=== PATIENT | female | born 1950 | race Caucasian/White ===

== ENCOUNTER 2017-01-10 08:55 | Day surgery (SDC) | payer OTHER ==
[~2017-01-10] VITALS: Ht 154.9 cm; Wt 95.2 kg
--- NOTE | 2017-01-10 07:45 | PCM.HPANE ---
Patient Data Surgeon Admitting Provider: Attending Provider:Scottie Burciaga MD Primary Care Physician:Davie Christian DO Other Provider:NickoocShiraBurkett Anesthesia Reason for Visit Atypical Chest Pain Ht/WT & BMI Body Mass Index Allergies Coded Allergies: aspirin (Verified Allergy, Mild, NAUSEA, 12/16/13) Past Anesthesia History Anesthesia History: Denies:: Abnormal Airway, Anesthesia Reactions, Difficult Intubation, Fam Anesthesia Reaction, Fam Malignant Hypertherm, Malignant Hyperthermia Diabetes History Hx Diabetes?: No MRSA MRSA: No Medications Reported Medications Cholecalciferol (Vitamin D3) (Vitamin D3)400 Unit Tab.qknn401 Unit PO 01/08/17 Verapamil ER 180 Mg Cap24h.eig911 Mg PO DAILY Ref 0 01/08/17 Ranitidine 150 Mg Oqwrhtr316 Mg PO BID Ref 0 01/08/17 Nitroglycerin SL 0.4 Mg Tab.subl0.4 Mg SL 01/08/17 Metoprolol Tartrate 100 Mg Gqsnve919 Mg PO BID 30 Days Ref 0 01/08/17 Calcium Carbonate (Calcium)600 Mg Pnbhhi433 Mg PO DAILY 01/08/17 Discontinued Reported Medications Naproxen Sodium (Aleve)220 Mg Zrfliyd831 Mg PO 12/17/13 Hydrochlorothiazide 25 Mg Wvgchx40 Mg PO DAILY 30 Days Ref 0 12/17/13 Meloxicam (Mobic)7.5 Mg/5 Ml Oral.susp15 Mg PO DAILY Ref 0 12/17/13 Discontinued Scripts Ondansetron ODT (Zofran ODT)4 Mg Tablet4 Mg PO Q4H PRN For Nausea #10 TABLET Prov:Ashish Olivares MD 07/21/15 History History of ENT Problems?: No HEENT History: Denies:: Abnormal Airway Difficult Intubation Dysphagia Hearing Problem Denture Type: None Teeth Condition: Within Normal Limits Hx of Heart Problems?: Yes Cardiovascular History: Positive for:: Hypertension Denies:: AICD Atrial Fibrillation Chest Pain Pacemaker Valvular Heart Disease Hx of Respiratory Problem?: No Respiratory History: Denies:: Asthma COPD Cough Hemoptysis Pneumonia Tuberculosis Hx Neurologic Problems?: No Neurological History: Denies:: Alzheimer's Disease CVA Dementia Dizziness Headaches Multiple Sclerosis Parkinson's Disease Peripheral Neuropathy Seizures TIA Hx of GI Problems?: Yes Gastrointestinal History: Positive for:: Gastroesphageal Reflux Denies:: Cirrhosis Diverticulitis Gall Bladder Disease Gastrointestinal Bleeding Heartburn Hepatitis Hiatal Hernia Liver Disease Rectal Bleeding Hx of Problems?: No Female Hx: Denies:: Currently Hx Musculoskeletal Problems?: No Musculoskeletal History: Denies:: Joint Replacement Hx of Psycho/Social Problems?: No Psycho Social History: Denies:: Anxiety Hx Depression Hx Surgeries?: Yes Hx Any Other Health Problems?: Yes Hx Diabetes: No Hx Alcohol Use: Yes (SELDOM) Smoking Status: Never Smoker Stop/Bang Risk Assessment Category Category 1A: Patient has history of documented sleep apnea, and HAS NOT received any narcotic, sedative or anesthesia administration during this stay. Category 1B: Patient has history of documented sleep apnea, and HAS received any narcotic , sedative or anesthesia administration during this stay Category 2: Patient has SUSPECTED Obstructive Sleep Apnea, and HAS received any narcotic , sedative or anesthesia administration during this stay. Category 3: Patient has SUSPECTED Obstructive Sleep Apnea and HAS NOT received narcotic, sedative or anesthesia administration during this stay. Category 4: Outpatient in Procedural Areas with known sleep apnea or who screen positive for High Risk via the STOP/BANG questionnaire. Exam Exam General Appearance: Alert, Oriented X3, Cooperative HEENT/AIRWAY: MP 1, Neck Movement (from), Mouth Opening (wnl) Lungs: Clear to Auscultation Heart: Exam Unremarkable Plan Impression Patient chart reviewed, patient interviewed and anesthestic plan with risks, benefits, and alternatives discussed, and informed consent obtained. ASA Physical Status: ASA2 Mod Systemic Disease Anesthetic Plan: MAC Bene/Risks/Altern/Consents: Yes HP Complete Prior to Induction: Yes Dimitris Ruiz MD Jan 10, 2017 07:45
[~2017-01-10 08:55] MED LIST: CALC600T12 PO; CHOL400T3 PO; Lactated Ringer's 1,000 ML IV ONE; METO100T3 PO; NITR0.4T6 SL; RANI150C4 PO; VERA180C2 PO
[2017-01-10] MEDS ORDERED: Propofol 10,000 mCg/mL 20 mL Inj ONE (08:56)
[2017-01-10] MEDS ORDERED: fentaNYL-PF 50 mCg/mL 2 mL Inj ONE (08:56)
[2017-01-10 09:32] VITALS: BP 145/75; PULSE 60; RESP 16; O2SAT 96
[2017-01-10 10:13] VITALS: BP 122/70; PULSE 67; RESP 15; O2SAT 93
--- NOTE | 2017-01-10 10:13 | PCM.ENDEGD ---
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 Scope introduced esophagus. Esophagus showed normal shiny whitish mucosa consistent with squamous cell component. Z line was at 40 cm from the incisors. There was 2 cm area of salmon colored mucosa consistent with Gardiner's esophagus. Narrow banding used. No ulcer mass erosion atypical mucosa noted. 4 quadrant biopsy obtained every 2 cm. Scope further advanced to the stomach. Stomach showed normal shiny mucosa with normal appearing rugae folds without any ulcer mass erosion. However there were isolated spot where some redness was noted. Biopsies obtained at the spots. Cardia fundus body antrum pylorus were all visualized. Retroflexion was done. Stomach was easily inflated and deflatable using air. Scope further advanced to the distal duodenum. Duodenum revealed normal villous structures with normal appearing folds without any mass ulcer erosion. 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 Patient monitoring Continuous pulse oximetry, cardiac monitoring, blood pressure monitoring, IV access, and oxygen at 2L per nasal cannula. Complications There were no periprocedural complications identified. Post Procedure Plan Post Procedure Recommendations 1. Restrict activities today. 2. Resume normal activities in the morning. 3. Resume medications. 4. GERD behavioral modification: - Avoid fatty, acidic, spicy, large meals - Do not lie down after meals - Do not eat or drink anything for at least 2 1/2 hours before going to bed at night - Discontinue tobacco and alcohol - Decrease or avoid caffeine - Avoid chocolate and mints - Decrease weight - Avoid aspirin and non steroidal anti-inflammatory agents (NSAID) such as Aleve, Advil, Mobic, Naproxen, Ibuprofen, etc 5. Add proton pump inhibitor. Take 30 minutes before 1st meal of the day. 6. Patient informed of normal post procedure side effects as bloating, drowsiness, blood streaking in the stool 7. If gastric biopsy reveal H.pylori, continue with appropriate treatment 8. If small bowel biopsy reveals celiac, continue with appropriate treatment 9. Please don't hesitate to call me with any questions Scottie Burciaga MD Jan 10, 2017 10:13
--- NOTE | 2017-01-10 10:17 | PCM.ANEP1 ---
Post Anesthesia PACU Phase 1 Assessment Vital Signs Vital Signs Date Time Temp Pulse Resp B/P Pulse Ox O2 Delivery O2 Flow Rate FiO2 01/10/17 10:13 67 15 122/70 93 Room Air 01/10/17 09:32 36.6 60 16 145/75 96 Room Air Anesthetic Administered: GA Level of Alertness: Awake, talking REID's with Equal Strength: Yes Pain: No Nausea or Vomiting: No CV Function & Hydration Stable: Yes Airway Device: Oxygen Delivery: Room Air Lungs: Normal Air Movement PACU Phase 2 Assessment Complications: No Follow up Care: No Patient Instructions Provided: N/A Dimitris Ruiz MD Jan 10, 2017 10:17
[2017-01-10 10:21] VITALS: BP 123/70; PULSE 64; RESP 15; O2SAT 94
[2017-01-10 10:31] VITALS: BP 150/76; PULSE 68; RESP 15; O2SAT 94
[2017-01-10 10:41] VITALS: BP 140/81; PULSE 61; RESP 15; O2SAT 94
--- NOTE | 2017-01-14 16:29 | PATH ---
SURGICAL PATHOLOGY Attending Physician:Scottie Burciaga M.D. CASE STATUS: Signed Out PATIENT NAME: VJ CASANOVA PID: [id number] : 1950 DATE COLLECTED:01/10/2017 15:04 SPECIMEN: 1: Gastric, Biopsy 2: Esophagus, Biopsy CLINICAL HISTORY: ATYPICAL CHEST PAIN 1). GASTRIC BIOPSY 2). DISTAL ESOPHAGUS BIOPSY FINAL DIAGNOSIS: 1. Stomach, Biopsy: Gastric antral mucosa with intestinal metaplasia. Negative for Helicobacter organism by immunohistochemistry. Negative for dysplasia or malignancy. 2. Distal Esophagus, Biopsy: Squamocolumnar junctional mucosa with no diagnostic abnormality. Negative for intestinal metaplasia, dysplasia or malignancy. ICD10: R07.89 GROSS DESCRIPTION: Received two formalin-filled containers, each labeled with the patient' s name. 1. Received in formalin, labeled with the patient' s name and "gastric biopsy", are three fragments of marshall, soft tissue ranging from 0.1 x 0.1 x 0.1 cm to 0.2 x 0.2 x 0.1 cm. The fragments are totally submitted in cassette 1A. 2. Received in formalin, labeled with the patient' s name and "distal esophagus biopsy", are four fragments of marshall, soft tissue ranging from 0.1 x 0.1 x 0.1 cm to 0.3 x 0.2 x 0.1 cm. The fragments are totally submitted in cassette 2A. ([id number]) MICRO DESCRIPTION: A) An immunohistochemical stain was performed to evaluate for Helicobacter organisms and is negative. A control stain showed appropriate reactivity. * This test was developed and its performance characteristics determined by [facility]. It has not been cleared or approved by the U.S. Food and Drug Administration. The FDA has determined that such clearance or approval is not necessary. This test is used for clinical purposes. It should not be regarded as investigational or for research. ICD-9 CODES: CPT CODES: 1: 61266, 35309 2: 37249 Electronically Signed Out Jani Macias MD, Ph.D. [facility], [place] [address] Technical component performed at [facility], [address], [place], [address]
== END 2017-01-10 23:59 | disposition home or self-care (01) ==
LOC: END 08:55
PROVIDERS: ATTEND Internal Medicine
DX: K29.50 Unspecified chronic gastritis without bleeding (principal); R07.89 Other chest pain; Z79.899 Other long term (current) drug therapy; Z87.891 Personal history of nicotine dependence
CPT/HCPCS: 43239; J2250; J2704; J3010; J7120

== ENCOUNTER 2017-02-08 09:55 | Observation (INO) | payer OTHER ==
[~2017-02-08] VITALS: Ht 154.9 cm; Wt 94.5 kg
[2017-02-08] VITALS (7 sets, daily range): BP systolic 116–166; BP diastolic 67–102; PULSE 54–75; RESP 14–20; O2SAT 96–99
[~2017-02-08 09:55] MED LIST changes: -Lactated Ringer's 1,000 ML IV ONE; +NITR0.4T38 SL; -NITR0.4T6 SL
--- NOTE | 2017-02-08 10:16 | ED.REPORT ---
HPI-Dyspnea / Wheezing Date of Service Feb 08, 2017 ED Provider: Armond De Jesus DO Pt is a 66 y/o female w/ a hx of HTN, angina, presenting to the ED c/o vague numbness onset 1 hour ago. She has been experiencing shortness of breath which is worse with exertion for a few days and 1 hour ago she began experiencing left face numbness followed by left arm numbness, and then finally right arm numbness. She c/o associated orthopnea. Her numbness has decreased since onset. Pt denies headache, problem walking, focal weakness, speech change, vision change, dizziness. Her last stress test was in April 2016. She states she has an allergy to aspirin which makes her nauseous. The patient is taking metoprolol and verapamil. She also states she has been experiencing near- syncope intermittently for the past 4 years and is wanting to have that checked up. 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 Stated Complaint: NUMBNESS IN ARMS, DIZZINESS, NUMBNESS IN FACE Chief Complaint: Neuro Symptoms/ Deficits Nursing Notes Reviewed: Yes Allergies: Coded Allergies: aspirin (Verified Allergy, Mild, NAUSEA, 12/16/13) Scheduled Metoprolol Tartrate (Metoprolol Tartrate) 100 Mg Tablet 100 MG PO BID Ranitidine (Ranitidine) 150 Mg Capsule 150 MG PO BID Verapamil ER (Verapamil ER) 180 Mg Cap24h.pel 180 MG PO DAILY diphenhydrAMINE HCl (Benadryl) 25 Mg Capsule 25 MG PO DAILY Miscellaneous Medications Nitroglycerin SL (Nitroglycerin SL) 0.4 Mg Tab.subl 0.4 MG SL General Time Seen by MD: 10:15 Chief Complaint Shortness of breath Hx Obtained From: Patient Arrived By: Walk-in Sudden in Onset?: No Onset Occurred: 5 - 8 hours ago Symptom Duration: Since onset Past Medical History Past Medical History Notes: PCP: Dr. Perez Past Medical History Angina - takes Nitro Hypertension Constipation GERD Arthritis in back Past Surgical History Hysterectomy Cholecystectomy Cataracts Breast Wrist Right leg tendons Smoking History Never Smoker Social History Alcohol Use: "Social" Drug Use: Denies drug use Other Social History: Good social support Ambulatory Status Independent Review of Systems Respiratory: Reports: Shortness of breath Cardiovascular: Denies: Chest pain Complete sys rev & neg: except as marked. Neurologic: Reports: Numbness, Denies: Focal weakness, Headache, Problem walking, Seizure, Shaking, Slurred speech, Unable to speak, Vision change Physical Exam Initial Vital Signs Vital Signs (First) Date Time Temp Pulse Resp B/P Pulse Ox O2 Delivery O2 Flow Rate FiO2 02/08/17 10:00 37.0 54 16 116/77 98 Room Air 02/08/17 12:26 2 Initial VS: Reviewed, Vital signs normal Head / Eyes: Atraumatic, Normocephalic, PERRL ENT: Mucous membranes moist, Conjunctiva normal, No scleral icterus Abdomen / GI: Soft, Non-tender, No guarding, No rebound, No distention Extremities: Vascular intact, Neuro intact, No swelling Skin: Warm, Dry, No cyanosis Psychiatric: Mood/affect normal, Behavior normal, Normal thought content General/Constitutional: Awake, Alert, No acute distress, Cooperative, Not toxic appearing Neck: Supple, Full range of motion Respiratory / Chest: Breath sounds NL, Breath sounds = bilat, No respiratory distress, No rales, No rhonchi, No wheezing, No stridor Cardiovascular: Heart sounds NL, No gallop, No murmurs, No rubs, Cap refill not delayed, Peripheral circulation NL, Pulses = bilaterally Heart Rate / Rhythm: Positive: Bradycardia, Irregular rhythm Neurologic: Oriented X3, Speech NL, No motor deficits, No sensory deficits, CN II - XII intact, Cerebellar NL, Memory NL, Gait NL Interpretation & Diagnostics Lab Results Interpretation Result Diagram: 02/08/17 1050 02/08/17 1050 Test 02/08/17 10:15 02/08/17 10:47 02/08/17 10:50 Hold Urine Received (Received) Hold Pryor Top Tube Received (Received) White Blood Count 6.0th/mm3 (3.8-10.1) Red Blood Count 4.50mil/mm3 (3.90-5.20) Hemoglobin 13.9g/dL (12.0-15.6) Hematocrit 40.4% (35.0-46.0) Mean Corpuscular Volume 89.8fL (81-100) Mean Corpuscular Hemoglobin 30.9pg (27.0-35.0) Mean Corpuscular Hemoglobin Concent 34.4% (32.0-37.0) Red Cell Distribution Width 13.9% (12.3-15.4) Platelet Count 250bil/L (150-400) Neutrophils (%) (Auto) 68.4% (40-74) Lymphocytes (%) (Auto) 18.9% (14-46) Monocytes (%) (Auto) 8.5% (4-12) Eosinophils (%) (Auto) 3.7% (0-5) Basophils (%) (Auto) 0.3% (0-3) D-Dimer 0.63mg/L FEU (<0.50) Sodium Level 139mEq/L (134-144) Potassium Level 4.5mEq/L (3.5-5.2) Chloride Level 103mEq/L (97-108) Carbon Dioxide Level 21mmol/L (18-29) Blood Urea Nitrogen 20mg/dL (8-27) Creatinine 0.64mg/dL (0.57-1.00) Estimat Glomerular Filtration Rate 134mL/min (>59) Glucose Level 133mg/dL (60-99) Calcium Level 8.8mg/dL (8.5-10.1) Magnesium Level 2.1mg/dL (1.6-2.6) Total Bilirubin 0.4mg/dL (0.0-1.2) Aspartate Amino Transf (AST/SGOT) 44U/L (0-50) Alanine Aminotransferase (ALT/SGPT) 36U/L (0-32) Alkaline Phosphatase 121U/L (25-165) Total Creatine Kinase 55U/L (21-215) Creatine Kinase MB 1.2ng/mL (0.0-5.3) Creatine Kinase MB % % (0.0-5.0) Troponin T < 0.010ug/L (0.0-0.011) Pro-B-Type Natriuretic Peptide 571.1pg/mL (0-287) Total Protein 7.1g/dL (6.4-8.4) Albumin 3.8g/dL (3.4-5.0) Thyroid Stimulating Hormone (TSH) 3.590uIU/mL (0.450-4.500) Free Thyroxine 0.99ng/dL (0.82-1.77) ECG Interpretation ECG Interpretation: Sinus bradycardia rate in 40s Ventricular bigeminy Time: 10:41 Interpreted by: ED physician Normal ECG Interpretation: No acute ischemic changes ECG Interpretation: Sinus rhythm rate 63 LVH Time: 12:40 Interpreted by: ED physician X-Ray Chest Interpretation Chest Xray Interpretation: IMPRESSION: Mild cardiomegaly with mild vascular congestion. Dictated by: Maikol Rodriguez M.D. on 02/08/2017 at 9:44 Approved by: Maikol Rodriguez M.D. on 02/08/2017 at 9:46 View: Portable, 1 view Interpretation / Wet Read by: Interpret - Radiologist Re-Eval/Medical Decision Med Decision/Clinical Course Clinically patient became somnolent and less responsive when her heart rate dropped representing severe symptomatic bradycardia minimally responsive to low doses of atropine, totaling 3 mg. Her medical history is reviewed and she is on both metoprolol and verapamil concern for both beta dawna and calcium channel dawna toxicity, 5 mg of IV glucagon are given as well as 3 g of IV calcium gluconate which normalized her heart rate in resolve her symptoms. She will be admitted to [facility] for ongoing monitoring. Re-Evaluation/Progress #1: Time of Eval: 11:15 Re-Evaluation/Progress Note: Pt rechecked. HR is now in 40s and she feels short of breath at rest. Re-Evaluation/Progress #2: Time of Eval: 11:23 Re-Evaluation/Progress Note: Pt rechecked. HR now 48. She is somnolent. Discussed with patient that this is likely a Beta dawna overdose and she may need a pacemaker. She agrees with plan for pacemaker if indicated. She would like to be FULL CODE. Re-Evaluation/Progress #3: Time of Eval: 11:31 Re-Evaluation/Progress Note: Pt rechecked. HR dropping into 30s and she is somnolent. She has no clue what medicine she takes other than what Dr. Porter prescribes. Re-Evaluation/Progress #4: Time of Eval: 11:35 Re-Evaluation/Progress Note: Pt rechecked. Informed pt of need for admission. Pt understands and agrees with plan for admission. All questions addressed. Now requiring 3 pushes of atropine total of 2 mg. Re-Evaluation/Progress #5: Time of Eval: 11:49 Re-Evaluation/Progress Note: Pt rechecked. She is feeling better after medications now that her HR is in the 50s. Re-Evaluation/Progress #6: Time of Eval: 12:05 Re-Evaluation/Progress Note: Pt rechecked. HR in 50s, now receiving 3rd mg of Atropine, glucagon, and calcium. Feeling better. Re-Evaluation/Progress #7: Time of Eval: 12:15 Re-Evaluation/Progress Note: Pt rechecked. Much improved. HR of 73. Now vomiting from glucagon. Consultation : Referral / Consult Name: Sofiya Mon DO Consulted With: Hospitalist Call Returned at: 11:40 Scene Painter: Will see patient, Agrees with eval, Agrees with plan, Accepts admit Counseled Regarding: Diagnosis, Lab results, Need for admission Discharge & Departure Impression: Primary Impression: Beta dawna toxicity Additional Impression: Symptomatic bradycardia Disposition: ADMITTED TO HOSPITAL Discharge Condition All VS Reviewed: Yes Condition: Stable Referrals: OTHER,PHYSICIAN (PCP) Antonio Porter MD Crit Care Except Billable Proc Time Spent: 75-104 minutes Services Performed: Patient management by me, Time spent at bedside, Reviewing test results, Reviewing imaging, Discussing patient care, Documentation in record, Time with fam/surrogate Critical Care Notes: 80 minutes Scribe Attestation Portions of this note were transcribed by Alec Bravo. I, Dr. De Jesus personally performed the history, physical exam and medical decision-making; I reviewed and confirmed the accuracy of the information in the transcribed note. copies to: Antonio Porter MD, Timothy S DO Feb 08, 2017 10:16 ALEC BRAVO Feb 08, 2017 10:23
--- NOTE | 2017-02-08 10:47 | DRSVH ---
PROCEDURE: X-RAY CHEST ONE VIEW, PORTABLE ([id number]) INDICATIONS: dyspnea TECHNIQUE: One view of the chest was acquired. COMPARISON: [facility], CR, CHEST 2VW, 02/02/2011, 9:46. FINDINGS: Surgical changes and devices: None. Lungs and pleura: The pulmonary vasculature may be slightly prominent. Mediastinum: Mediastinal contours appear normal. The heart appears to be slightly enlarged. Bones and chest wall: No suspicious bony lesions. Overlying soft tissues appear unremarkable. IMPRESSION: Mild cardiomegaly with mild vascular congestion. Dictated by: Maikol Rodriguez M.D. on 02/08/2017 at 9:44 Approved by: Maikol Rodriguez M.D. on 02/08/2017 at 9:46
[2017-02-08 10:56] LABS: BASOPHILS % (AUTO) 0.3 % (0-3); EOSINOPHILS % (AUTO) 3.7 % (0-5); MONOCYTES % (AUTO) 8.5 % (4-12); Mean Corpuscular Hemoglobin 30.9 pg (27.0-35.0); Mean Corpuscular Volume 89.8 fL (81-100); NEUTROPHILS % (AUTO) 68.4 % (40-74); Platelet Count 250 bil/L (150-400)
[2017-02-08] MEDS: Ondansetron 2 mg/mL 2 mL Inj IVPUSH ONE ×2 (11:19→12:14)
[2017-02-08] MEDS ORDERED: Glucagon 1 mg/mL Inj IV ONE (11:30)
[2017-02-08 11:32] LABS: TROPONIN T < 0.010 ug/L (0.0-0.011)
[2017-02-08] MEDS: Atropine 1 mg/10 mL (Code) Syringe IVPUSH PRN ×3 (11:32→12:00)
[2017-02-08] MEDS ORDERED: Calcium GLUCOnate 10% (Gm) 1 Gm/10 mL Inj ONE (11:35)
[2017-02-08 11:38] LABS: Creatine Kinase 55 U/L (21-215); Magnesium 2.1 mg/dL (1.6-2.6)
[2017-02-08] MEDS ORDERED: Calcium GLUCOnate 10% (Gm) 1 Gm/10 mL Inj IVPUSH ONE (11:45)
[2017-02-08] MEDS ORDERED: Ondansetron 2 mg/mL 2 mL Inj IVPUSH PRN (11:45)
[2017-02-08] MEDS ORDERED: Polyethylene Glycol (PEG) 17 Gm Powder PO PRN (11:45)
[2017-02-08] MEDS ORDERED: Alum-Mag Hydrox-Simeth 30 mL Suspension PO PRN (11:45)
[2017-02-08] MEDS ORDERED: 0.9% Sodium Chloride 1,000 ML IV SCH (11:50)
[2017-02-08] MEDS ORDERED: Atropine 1 mg/10 mL (Code) Syringe ONE (12:47)
[2017-02-08] MEDS ORDERED: DIPH25CA6 PO (12:49)
--- NOTE | 2017-02-08 13:40 | NUR ---
Admit note Report received from ED rn. Patient arrived to room 2010 from ED. Patient oriented to room and use of call light. Policies and pdrocedures explained. Patient verbalized understanding. Patient alert and oriented x3. Vital signs charted on admission. Tele Showing pt SR in the 60s. stating feeling faint, reminded pt to use call light for needs. Pt verbalized understanding. Ongoing care.
--- NOTE | 2017-02-08 14:34 | PCM.HPMED ---
Subjective Date of Service Feb 08, 2017 Primary Provider: Admitting Physician: Sofiya Mon DO Primary Care Physician: Lara Sneed MD Attending Physician: Sofiya Mon DO Chief Complaint: Pre-syncope History of Present Illness: Patient is 66 year old, female with a past medical history significant for hypertension, angina, and hypertrophic obstructive cardiomyopathy who presents to the ED complaining of feeling like she was going to "pas out" with symptoms of shortness of breath that was accompanied by numbness of the left side of her face and left arm while sitting on her couch. She states that her symptoms began at 8:30 AM with the progression of fatigue, dizziness, cold sensation and tingling/ numbness in her left arm, pain in left eye. She admits to similar episodes of presyncope accompanied by chest pain occurring throughout the last few months, for which she has not visited the ED. The most recent of which occurred 01/27 and 01/29, and were accompanied by chest pain. Patient states that today's episode is unlike her prior episodes of angina due to the absence of pain. Patient is being followed by college physics instructor, Dr. Porter. She takes metoprolol tartrate 100 mg bid and verapamil 180 mg. Patient admits to not being compliant with her medications. She states that she frequently forgets to take her heart medication at the prescribed time and takes it as soon as she remembers, sometimes overlapping with her next dose. She had a recent ECHO done on 09/18/16 which showed severe asymmetric left ventricular hypertrophy and increased LVOT velocity suggestive of obstruction. Patient denies any episode of syncope and there is no family history of sudden cardiac . Vitals signs in the ED were Temperature 37, RR 16, BP 116/78, 98% O2 on RA. Upon initial arrival to the ED, EKG revealed bradycardia with a heart rate of 30. She was given atropine x3, for a total of 2mg, calcium gluconate to reverse verapamil and glucagon to reverse metoprolol. This resulted in an increase of her heart rate to 70 within minutes. When transferred to the floor, patient's heart rate was in the 60s and blood pressure was 162/70. Review of Systems: She admits to three weeks of new onset vision changes, and constipation. Denies pain, headache, recent illness, diarrhea, changes to hearing, nausea, vomiting, abdominal pain and diarrhea. The comprehensive review of systems was conducted with the patient and found to be negative except as above in the history of present illness. Allergies Coded Allergies: aspirin (Verified Allergy, Mild, NAUSEA, 12/16/13) Home Medications Calcium Carbonate 600mg Cholecalciferol 400 units Metoprolol Tartrate 100mg BID Nitroglycerin 0.4mg capsule Ranitidine 150mg BID Verapamil 180mg Prilosec 20 mg PMH Hypertrophic obstructive cardiomyopathy Angina Hypertension GERD Constipation Arthritis of arms and hands Surgical History Hysterectomy Cholecystectomy Left Wrist surgery Cataract surgery Right leg tendon Breast surgery (around 1986 breast was leaking a brown fluid so excised lesion of concern) Family History Father- Stroke, Diabetes, MD (roughly 40 years old), Cancer (cause of ) Mother-Stroke, Diabetes, Pneumonia (cause of aged 71) Siblings- Total 16. 3 oldest brothers passed due to cancer, sister MD and cancer (). All other siblings have unknown heart conditions. Social History Hx Alcohol Use: Yes (very seldom) Hx Substance Use: Yes (marijuana last used over 7 years ago) Smoking Status: Former Smoker (20 pack year history quit 9 years ago) Years of Smokin Living Arrangement: with Family Additional Information Caffeine-averages 2 servings per day Exam Vital Signs Vital Sign - Last Date Time Temp Pulse Resp B/P Pulse Ox O2 Delivery O2 Flow Rate FiO2 02/08/17 13:36 62 02/08/17 13:30 36.6 17 166/81 97 Room Air 02/08/17 12:26 2 Exam General: Patient is lying comfortably on bed, AAOX3, not in acute distress, cooperative and pleasant. HEENT: head normocephalic and atraumatic, PERRLA, EOMI, no scleral icterus, noninjected conjunctiva Neck: neck supple, non-tender, no lymphadenopathy, trachea midline, no JVD CV: regular rate and rhythm, s1 and s2 heard, grade 2/6 systolic murmur heard best on the right sternal border, radial pulses 2+ and equal bilaterally, no rubs or gallops, no edema Lungs: Clear to auscultation bilaterally, no wheezes, rales or rhonchi, no increased work of breathing Abdomen: normoactive bowel sounds on 4Q, soft, non-distended, non-tender to palpation, no organomegally, Skin: warm and dry Musculoskeletal: 5/5 UE and LE strength bilaterally, full ROM bilaterally Neuro: Grossly neurologically intact, cranial nerves II through XII intact, no dyskinesia, dysmetria, sensation intact in extremities Psych: Normal mood and affect Lab and Diagnostics Labs Laboratory Tests Test 02/08/17 10:15 02/08/17 10:47 02/08/17 10:50 Hold Urine Received (Received) Hold Pryor Top Tube Received (Received) White Blood Count 6.0th/mm3 (3.8-10.1) Red Blood Count 4.50mil/mm3 (3.90-5.20) Hemoglobin 13.9g/dL (12.0-15.6) Hematocrit 40.4% (35.0-46.0) Mean Corpuscular Volume 89.8fL (81-100) Mean Corpuscular Hemoglobin 30.9pg (27.0-35.0) Mean Corpuscular Hemoglobin Concent 34.4% (32.0-37.0) Red Cell Distribution Width 13.9% (12.3-15.4) Platelet Count 250bil/L (150-400) Neutrophils (%) (Auto) 68.4% (40-74) Lymphocytes (%) (Auto) 18.9% (14-46) Monocytes (%) (Auto) 8.5% (4-12) Eosinophils (%) (Auto) 3.7% (0-5) Basophils (%) (Auto) 0.3% (0-3) D-Dimer 0.63mg/L FEU (<0.50) Sodium Level 139mEq/L (134-144) Potassium Level 4.5mEq/L (3.5-5.2) Chloride Level 103mEq/L (97-108) Carbon Dioxide Level 21mmol/L (18-29) Blood Urea Nitrogen 20mg/dL (8-27) Creatinine 0.64mg/dL (0.57-1.00) Estimat Glomerular Filtration Rate 134mL/min (>59) Glucose Level 133mg/dL (60-99) Calcium Level 8.8mg/dL (8.5-10.1) Magnesium Level 2.1mg/dL (1.6-2.6) Total Bilirubin 0.4mg/dL (0.0-1.2) Aspartate Amino Transf (AST/SGOT) 44U/L (0-50) Alanine Aminotransferase (ALT/SGPT) 36U/L (0-32) Alkaline Phosphatase 121U/L (25-165) Total Creatine Kinase 55U/L (21-215) Creatine Kinase MB 1.2ng/mL (0.0-5.3) Creatine Kinase MB % % (0.0-5.0) Troponin T < 0.010ug/L (0.0-0.011) Pro-B-Type Natriuretic Peptide 571.1pg/mL (0-287) Total Protein 7.1g/dL (6.4-8.4) Albumin 3.8g/dL (3.4-5.0) Thyroid Stimulating Hormone (TSH) 3.590uIU/mL (0.450-4.500) Free Thyroxine 0.99ng/dL (0.82-1.77) Result Diagram: 02/08/17 1050 02/08/17 1050 X-Rays, CTs and MRIs PROCEDURE: X-RAY CHEST ONE VIEW, PORTABLE ([id number]) INDICATIONS: dyspnea TECHNIQUE: One view of the chest was acquired. COMPARISON: [facility] [place], [place], CHEST 2VW, 02/02/2011, 9:46. FINDINGS: Surgical changes and devices: None. Lungs and pleura: The pulmonary vasculature may be slightly prominent. Mediastinum: Mediastinal contours appear normal. The heart appears to be slightly enlarged. Bones and chest wall: No suspicious bony lesions. Overlying soft tissues appear unremarkable. IMPRESSION: Mild cardiomegaly with mild vascular congestion. Dictated by: Maikol Rodriguez M.D. on 02/08/2017 at 9:44 Approved by: Maikol Rodriguez M.D. on 02/08/2017 at 9:46 12-lead ECG 02/08/17 ECG Interpretation: Sinus bradycardia rate in 40s Ventricular bigeminy Time: 10:41 Interpreted by: ED physician Normal ECG Interpretation: No acute ischemic changes ECG Interpretation: Sinus rhythm rate 63 LVH Time: 12:40 Interpreted by: ED physician Cardiac Echo Impressions Most recent echocardiogram on 09/18/2016 Interpretation Summary Proximal septal thickening is noted. There is severe asymmetric left ventricular hypertrophy. The LVOT velocity is 2.8 m/s. The left ventricular outflow velocity with valsalva is 6.4 m/s. There is mild mitral regurgitation. There is systolic anterior motion of the chordal apparatus. There is trace tricuspid regurgitation. The right ventricular systolic pressure is estimated at least 33 mmHg assuming a right atrial pressure of 3 mm Hg. EF 70-75% Assessment & Plan Patient is 66 year old, female with a past medical history significant for hypertension, angina, and hypertrophic obstructive cardiomyopathy who presents to the ED complaining of feeling like she was going to "pass out" with symptoms of shortness of breath that was accompanied by numbness of the left side of her face and left arm while sitting on her couch. Upon initial arrival to the ED, EKG revealed bradycardia with a heart rate of 30. She was given atropine x3, for a total of 2mg, calcium gluconate to reverse verapamil and glucagon to reverse metoprolol. She is being admitted to observation for symptomatic bradycardia. Acute Symptomatic Bradycardia, present on admission, resolved -presented with symptoms of pre-syncope -likely secondary to polypharmacy and non-compliant to medication instructions. Patient states that she takes her meds whenever she remembers -Patient is on metoprolol tartrate 100 mg bid and Verapamil 180 mg -with a heart rate of 30. She was given atropine x3, for a total of 2mg, calcium gluconate to reverse verapamil and glucagon to reverse metoprolol. -HR increased to 70s with the atropine -We will hold home medications of metoprolol and verapamil -Monitor patient on telemetry - Cardiology consulted and case discussed with Dr. Blackman Hypertension, chronic, ongoing -Hold home medications -Start hydralazine 25 mg q8 hrs -Monitor blood pressure Hypertrophic obstructive cardiomyopathy, present on admission, ongoing -Patient's most recent ECHO on 09/18/16 which showed severe asymmetric left ventricular hypertrophy and increased LVOT velocity suggestive of obstruction -Patient is being followed by Patient Resource Coordinator Dr. Porter as an outpatient -Will hold metoprolol and verapamil for now GERD -Continue home dose of ranitidine CODE status: Full code Patient is admitted under Inpatient status expected length of stay greater than 2 midnights Pain Evaluation: Adequate Pain Control GI Prophylaxis: H2 dawna VTE Prophylaxis: Sub-Q Heparin (Unfractionated) VTE Mechanical Devices: Intermittant Pneumatic CD Resuscitation Status: CPR: Attempt Resuscitation Attending Statement The patient was seen and examined together with Dr. Gutierrez on 02/08/17 and I have added additional information to the note above. Radha Gutierrez DO Feb 08, 2017 14:34 Sofiya Mon DO Feb 09, 2017 14:33
[2017-02-08] MEDS: Heparin 5,000 Unit/mL Inj SUBQ SCH (18:06)
--- NOTE | 2017-02-08 18:09 | PCM.ADCARE ---
Advance Care Planning Note CODE STATUS: Date: 02/08/2017 Diagnosis: Bradycardia Hypertension Angina GERD Constipation Arthritis Purpose of encounter: Goals of care Parties in attendance: The patient, Dr. Gutierrez, Dr. Mon Decisional capacity: Good Plan: The patient is aware of the current diagnosis and would like to continue to be full code. The patient understands that this means for chest compressions , intubation, pressors, and all measures involved with CPR. CODE STATUS: Full code Time spent with advanced care planning: Greater than 16 minutes Sofiya Mon DO Feb 08, 2017 18:09
[2017-02-09] VITALS (9 sets, daily range): BP systolic 123–158; BP diastolic 58–87; PULSE 71–84; RESP 13–22; O2SAT 96–97
[2017-02-09] MEDS: Heparin 5,000 Unit/mL Inj SUBQ SCH ×3 (00:24→16:49)
[2017-02-09 02:38] LABS: BASOPHILS % (AUTO) 0.6 % (0-3); EOSINOPHILS % (AUTO) 4.6 % (0-5); MONOCYTES % (AUTO) 10.6 % (4-12); Mean Corpuscular Hemoglobin 30.4 pg (27.0-35.0); Mean Corpuscular Volume 90.5 fL (81-100); NEUTROPHILS % (AUTO) 49.3 % (40-74); Platelet Count 224 bil/L (150-400)
--- NOTE | 2017-02-09 06:13 | NUR ---
HR/Activity Pt's HR has remained >60 BPM throughout the shift. Pt has had no SOB or dizziness upon standing. Pt has been able to get OOB to [facility] independently but has been requested to put epic professional light when needing to get OOB so that we can be SBA to prevent/decrease the possibility of falls. Pt has been compliant with this request and has used the call light appropriately as requested.
[2017-02-09] MEDS: Verapamil SR 180 mg ER12 Tablet PO SCH (11:36)
--- NOTE | 2017-02-09 11:37 | PCM.PNMED ---
Subjective Date of Service Feb 09, 2017 Subjective Patient is 66 year old, female with a past medical history significant for hypertension, angina, and hypertrophic obstructive cardiomyopathy who presents to the ED complaining of feeling like she was going to "pas out" with symptoms of shortness of breath that was accompanied by numbness of the left side of her face and left arm while sitting on her couch. Upon initial arrival to the ED, EKG revealed bradycardia with a heart rate of 30. She was given atropine x3, for a total of 2mg, calcium gluconate to reverse verapamil and glucagon to reverse metoprolol. Today, patient looks so much more alert and awake. She states that she feels much better than she did when she presented to the ED. She denied headaches, visual changes, chest pain, SOB, nausea, vomiting, abdominal pain, bowel changes and dysuria. She notes that she wants to get up to walk around so that she is not confined to the bed. Per telemetry, patient has remained in sinus rhythm with rate in 60s-80s. Currently her heart rate is in the 80s. There were no acute events overnight Exam Vital Signs Vital Sign - Last Date Time Temp Pulse Resp B/P Pulse Ox O2 Delivery O2 Flow Rate FiO2 02/09/17 05:53 71 02/09/17 03:54 36.6 13 146/67 96 Room Air 02/08/17 12:26 2 Intake and Output 02/08/17 02/08/17 02/09/17 Cumulative From/Thru 15:00 23:00 07:00 02/08/17 10:00 - 02/09/17 06:58 Intake Total 200 ml 400 ml 150 ml 750 ml Output Total 1550 ml 500 ml 2050 ml Balance 200 ml -1150 ml -350 ml -1300 ml Intake Oral 400 ml 150 ml 550 ml IV Total 200 ml 200 ml Output Urine Total 1550 ml 500 ml 2050 ml Exam General: Patient is lying comfortably on bed, AAOX3, not in acute distress, cooperative and pleasant. HEENT: head normocephalic and atraumatic, PERRLA, EOMI, no scleral icterus, noninjected conjunctiva Neck: neck supple, non-tender, no lymphadenopathy, trachea midline, no JVD CV: regular rate and rhythm, s1 and s2 heard, grade 2/6 systolic murmur heard best on the right sternal border, radial pulses 2+ and equal bilaterally, no rubs or gallops, no edema Lungs: Clear to auscultation bilaterally, no wheezes, rales or rhonchi, no increased work of breathing Abdomen: normoactive bowel sounds on 4Q, soft, non-distended, non-tender to palpation, no organomegally, Skin: warm and dry Musculoskeletal: 5/5 UE and LE strength bilaterally, full ROM bilaterally Neuro: Grossly neurologically intact, cranial nerves II through XII intact, no dyskinesia, dysmetria, sensation intact in extremities Psych: Normal mood and affect IVs and Medications Medications Reviewed: Medications were reviewed in detail Lab and Diagnostics Laboratory Tests Test 02/08/17 10:47 02/08/17 10:50 02/09/17 02:25 Hold Pryor Top Tube Received (Received) White Blood Count 6.0th/mm3 (3.8-10.1) 4.8th/mm3 (3.8-10.1) Red Blood Count 4.50mil/mm3 (3.90-5.20) 4.41mil/mm3 (3.90-5.20) Hemoglobin 13.9g/dL (12.0-15.6) 13.4g/dL (12.0-15.6) Hematocrit 40.4% (35.0-46.0) 39.9% (35.0-46.0) Mean Corpuscular Volume 89.8fL (81-100) 90.5fL (81-100) Mean Corpuscular Hemoglobin 30.9pg (27.0-35.0) 30.4pg (27.0-35.0) Mean Corpuscular Hemoglobin Concent 34.4% (32.0-37.0) 33.6% (32.0-37.0) Red Cell Distribution Width 13.9% (12.3-15.4) 14.1% (12.3-15.4) Platelet Count 250bil/L (150-400) 224bil/L (150-400) Neutrophils (%) (Auto) 68.4% (40-74) 49.3% (40-74) Lymphocytes (%) (Auto) 18.9% (14-46) 34.7% (14-46) Monocytes (%) (Auto) 8.5% (4-12) 10.6% (4-12) Eosinophils (%) (Auto) 3.7% (0-5) 4.6% (0-5) Basophils (%) (Auto) 0.3% (0-3) 0.6% (0-3) D-Dimer 0.63mg/L FEU (<0.50) Sodium Level 139mEq/L (134-144) 143mEq/L (134-144) Potassium Level 4.5mEq/L (3.5-5.2) 4.4mEq/L (3.5-5.2) Chloride Level 103mEq/L (97-108) 105mEq/L (97-108) Carbon Dioxide Level 21mmol/L (18-29) 23mmol/L (18-29) Blood Urea Nitrogen 20mg/dL (8-27) 20mg/dL (8-27) Creatinine 0.64mg/dL (0.57-1.00) 0.99mg/dL (0.57-1.00) Estimat Glomerular Filtration Rate 134mL/min (>59) 81mL/min (>59) Glucose Level 133mg/dL (60-99) 115mg/dL (60-99) Calcium Level 8.8mg/dL (8.5-10.1) 8.9mg/dL (8.5-10.1) Magnesium Level 2.1mg/dL (1.6-2.6) Total Bilirubin 0.4mg/dL (0.0-1.2) 0.3mg/dL (0.0-1.2) Aspartate Amino Transf (AST/SGOT) 44U/L (0-50) 25U/L (0-50) Alanine Aminotransferase (ALT/SGPT) 36U/L (0-32) 27U/L (0-32) Alkaline Phosphatase 121U/L (25-165) 116U/L (25-165) Total Creatine Kinase 55U/L (21-215) Creatine Kinase MB 1.2ng/mL (0.0-5.3) Creatine Kinase MB % % (0.0-5.0) Troponin T < 0.010ug/L (0.0-0.011) Pro-B-Type Natriuretic Peptide 571.1pg/mL (0-287) Total Protein 7.1g/dL (6.4-8.4) 6.1g/dL (6.4-8.4) Albumin 3.8g/dL (3.4-5.0) 3.4g/dL (3.4-5.0) Thyroid Stimulating Hormone (TSH) 3.590uIU/mL (0.450-4.500) Free Thyroxine 0.99ng/dL (0.82-1.77) Result Diagram: 02/09/1722402/09/17224 X-Rays, CTs and MRIs PROCEDURE: X-RAY CHEST ONE VIEW, PORTABLE ([id number]) INDICATIONS: dyspnea TECHNIQUE: One view of the chest was acquired. COMPARISON: [facility], , CHEST 2VW, 02/02/2011, 9:46. FINDINGS: Surgical changes and devices: None. Lungs and pleura: The pulmonary vasculature may be slightly prominent. Mediastinum: Mediastinal contours appear normal. The heart appears to be slightly enlarged. Bones and chest wall: No suspicious bony lesions. Overlying soft tissues appear unremarkable. IMPRESSION: Mild cardiomegaly with mild vascular congestion. Dictated by: Maikol Rodriguez M.D. on 02/08/2017 at 9:44 Approved by: Maikol Rodriguez M.D. on 02/08/2017 at 9:46 12-lead ECG 02/08/17 ECG Interpretation: Sinus bradycardia rate in 40s Ventricular bigeminy Time: 10:41 Interpreted by: ED physician Normal ECG Interpretation: No acute ischemic changes ECG Interpretation: Sinus rhythm rate 63 LVH Time: 12:40 Interpreted by: ED physician Cardiac Echo Impressions Most recent echocardiogram on 09/18/2016 Interpretation Summary Proximal septal thickening is noted. There is severe asymmetric left ventricular hypertrophy. The LVOT velocity is 2.8 m/s. The left ventricular outflow velocity with valsalva is 6.4 m/s. There is mild mitral regurgitation. There is systolic anterior motion of the chordal apparatus. There is trace tricuspid regurgitation. The right ventricular systolic pressure is estimated at least 33 mmHg assuming a right atrial pressure of 3 mm Hg. EF 70-75% Assessment & Plan Patient is 66 year old, female with a past medical history significant for hypertension, angina, and hypertrophic obstructive cardiomyopathy who presents to the ED complaining of feeling like she was going to "pas out" with symptoms of shortness of breath that was accompanied by numbness of the left side of her face and left arm while sitting on her couch. Upon initial arrival to the ED, EKG revealed bradycardia with a heart rate of 30. She was given atropine x3, for a total of 2mg, calcium gluconate to reverse verapamil and glucagon to reverse metoprolol. She was admitted to observation for symptomatic bradycardia , which resolved and patient remained stable overnight, with sinus rhythm rate in 60s-80s. Per recommendations of cardiology, given patient's history of HOCM, we will resume Verapamil and monitor patient overnight. Acute Symptomatic Bradycardia, present on admission, resolved -presented with symptoms of pre-syncope -likely secondary to polypharmacy and non-compliant to medication instructions. Patient states that she takes her meds whenever she remembers -Patient is on metoprolol tartrate 100 mg bid and Verapamil 180 mg -Presented with a heart rate of 30. She was given atropine x3, for a total of 2mg, calcium gluconate to reverse verapamil and glucagon to reverse metoprolol. -HR increased to 70s with the atropine -Held home medications of metoprolol and verapamil overnight -Cardiology, Dr. Blackman was consulted and case discussed extensively with him today. We appreciate his input. -Will resume verapamil today 02/09/17 -Continue to Monitor patient on telemetry Hypertension, chronic, ongoing -Hold home medications -Start hydralazine 25 mg q8 hrs. -Hydralazine was stopped on 02/09/17 and verapamil has been resumed -Monitor blood pressure Hypertrophic obstructive cardiomyopathy, present on admission, ongoing -Patient's most recent ECHO on 09/18/16 which showed severe asymmetric left ventricular hypertrophy and increased LVOT velocity suggestive of obstruction -Patient is being followed by Outreach Team Member Dr. oPrter as an outpatient -Held metoprolol and verapamil overnight -Cardiology, Dr. Blackman was consulted and suggested that we Resume verapamil 180 mg and monitor patient overnight given her history of HOCM GERD -Continue home dose of ranitidine CODE status: Full code Disposition: Patient will be restarted back on verapamil, will be observed overnight and will likely discharge tomorrow. Pain Evaluation: Adequate Pain Control GI Prophylaxis: H2 dawna VTE Prophylaxis: Sub-Q Heparin (Unfractionated) VTE Mechanical Devices: Intermittant Pneumatic CD Resuscitation Status: CPR: Attempt Resuscitation Attending Statement The patient was seen and examined together with Dr. Gutierrez on 02/09/17 and I have added additional information to the note above. Radha Gutierrez DO Feb 09, 2017 07:24 Sofiya Mon DO Feb 09, 2017 14:38
[2017-02-09] MEDS ORDERED: Verapamil SR 180 mg ER12 Tablet PO SCH (12:30)
--- NOTE | 2017-02-09 17:53 | NUR ---
Social Work Note: Initial Assessment Data& Assessment: EMR reviewed. MANAGER ELIGIBILITY met with pt at bedside to discuss discharge planning, MANAGER ELIGIBILITY role explained. cindy Mcneil is a 66 year old female admitted on for symptomatic bradycardia. Pt has [employer] Insurance coverage. Pt lives in [place] with family and is independent at baseline with all ADL's with no DME needs. Pt drives at baseline. Pt does not have SNF or HH hx. Pt does not have LTC insurance and is not a . Pt has DPOA/AD paperwork completed. MANAGER ELIGIBILITY requested a copy when possible. MD does not identify any concerns for pt capacity for self care at this time. Pt denies any needs at this time. Discharge Planning Checklist provided. MANAGER ELIGIBILITY to continue to follow if any pt needs or MD orders arise. Plan: Anticipated discharge home via POV when medically ready. Pt denies any needs at this time. MANAGER ELIGIBILITY to continue to follow if any pt needs or MD orders arise. DM Hsu
--- NOTE | 2017-02-09 18:23 | NUR ---
HR Tele 70-80s through the day. Pt stating feeling good today with no c/o dizziness.
[2017-02-10 02:35] LABS: Mean Corpuscular Hemoglobin 30.7 pg (27.0-35.0); Mean Corpuscular Volume 89.8 fL (81-100)
--- NOTE | 2017-02-10 03:01 | NUR ---
rn stars stated to the patient, "Metoprolol is one of your heart medications' Pt stated, "I guess so. I never know what I take' Pt given handout on metprolol and explained that it is given for both rate control and blood pressure Pt verbalized understanding
[2017-02-10 04:46] VITALS: BP 160/70; PULSE 90; RESP 20; O2SAT 95
[2017-02-10 05:32] VITALS: PULSE 75
[2017-02-10 07:50] VITALS: BP 155/59; PULSE 87; RESP 22; O2SAT 98
[2017-02-10] MEDS: Heparin 5,000 Unit/mL Inj SUBQ SCH ×2 (07:56)
[2017-02-10] MEDS: Verapamil SR 180 mg ER12 Tablet PO SCH (07:56)
[2017-02-10 08:00] VITALS: PULSE 98
[2017-02-10] MEDS ORDERED: MeTOProlol XL 25 mg ER24 Tablet PO SCH (09:35)
[2017-02-10] MEDS ORDERED: MeTOProlol XL 25 mg ER24 Tablet PO ONE (11:25)
[2017-02-10 11:44] VITALS: BP 130/71; PULSE 98; RESP 20; O2SAT 98
--- NOTE | 2017-02-10 13:00 | NUR ---
Heart rate Patient tachycardic in the 110s. PO metoprolol 25 mg given x2. Patient heart rate in the 80-90s. High 90s with activity.
[2017-02-10 15:55] VITALS: BP 140/86; PULSE 81; RESP 16; O2SAT 97
--- NOTE | 2017-02-10 16:25 | PCM.DIMED ---
Leroy Rosario DO 02/10/17 1625: Discharge Instructions Date of Service Feb 10, 2017 Dates of Hospitalization Feb 08, 2017 at 12:46 Discharge Diagnosis Discharge Diagnosis Acute Symptomatic Bradycardia Chronic Hypertension Hypertrophic Obstructive Cardiomyopathy Gastroesophageal Reflux Disease Medication Instructions Additional med instructions We have made a change to one of your previously prescribed medications that was likely causing your slow heart rate. Your Metoprolol has been decreased Please stop taking your old prescription. Please begin taking Metoprolol Succinate 50mg twice daily. The rest of your medications will remain the same. Diet Discharge Diet: Heart Healthy Activity Discharge Activity: Limited until seen by PCP Call your provider Call your provider for: Fever or Chills, Shortness of breath, Bleeding, Chest pain, Vomitting, Other (Slow heart rate less than 60 or fast heart rate greater than 100 while resting ) Patient Instructions Patient Instructions Please check your heart rate twice a day once in the morning before taking your metoprolol and in the afternoon. If you heart rate is slower than 60 beats pre minute ever, or faster than 100 beats per minute while resting please call you PCP and discuss any further changes to your medications. Follow-up plan Please follow up with your PCP in 1 week to discuss your recent hospitalization and to discuss your medication changes. Please follow up with your transport engineer in 2 weeks to discuss your medication changes, as well as how you are feeling after making the changes to your dosages. Follow-up Provider: Lara Sneed MD Follow-up with PCP in: 1 week Provider: Antonio Porter MD Follow-up in: 2 weeks Sofiya Mon DO 02/14/17 1334: Discharge Instructions Attending's Statement The patient was seen and examined together with on 02/10/17 and I agree with the history, exam and plan as outlined in the note above. Leroy Rosario DO Feb 10, 2017 16:25 Sofiya Mon DO Feb 14, 2017 13:34
[2017-02-10] MEDS ORDERED: METO-369 PO (16:28)
--- NOTE | 2017-02-10 17:18 | NUR ---
Social Work Note: Discharge Data& Assessment: Per MD pt is medically ready for discharge. Cherri Mcneil is a 66 year old female admitted on 02/08/2017 for symptomatic bradycardia. Per MD pt is medically improved and ready for discharge. Pt ambulating the halls independently and completing many laps at a time. No other MD orders or pt needs identified. Plan: Per pt is medically ready to discharge home via POV. All updated and agreeable to plan. DM Hsu
--- NOTE | 2017-02-10 17:24 | NUR ---
Discharge Patient HR sustaining at <100 bpm. All other VSS. Discharge instructions and medication information printed and reviewed verbally with patient. Patient education on checking HR and BP twice daily, patient demonstrated understanding. IV DC'd intact. Patient ambulated off unit with all personal belongings accompanied by her and discharged home via personal vehicle.
--- NOTE | 2017-02-11 20:38 | PCM.DC.MED ---
Discharge Summary Date of Service Feb 11, 2017 Dates of Hospitalization Date of Hospital Admission Feb 08, 2017 at 12:46 Date of Discharge: Feb 10, 2017 Providers: Admitting Physician: Sofiya Mon DO Primary Care Physician: Lara Sneed MD Attending Physician: Sofiya Mon DO Diagnosis at Time of Discharge Diagnosis at Time of Discharge Acute Symptomatic Bradycardia Chronic Hypertension Hypertrophic Obstructive Cardiomyopathy Gastroesophageal Reflux Disease Procedures XRay, CTs & MRIs PROCEDURE: X-RAY CHEST ONE VIEW, PORTABLE ([id number]) INDICATIONS: dyspnea TECHNIQUE: One view of the chest was acquired. COMPARISON: [facility], CR, CHEST 2VW, 02/02/2011, 9:46. FINDINGS: Surgical changes and devices: None. Lungs and pleura: The pulmonary vasculature may be slightly prominent. Mediastinum: Mediastinal contours appear normal. The heart appears to be slightly enlarged. Bones and chest wall: No suspicious bony lesions. Overlying soft tissues appear unremarkable. IMPRESSION: Mild cardiomegaly with mild vascular congestion. Dictated by: Maikol Rodriguez M.D. on 02/08/2017 at 9:44 Approved by: Maikol Rodriguez M.D. on 02/08/2017 at 9:46 ECG 12 Lead 02/08/17 ECG Interpretation: Sinus bradycardia rate in 40s Ventricular bigeminy Time: 10:41 Interpreted by: ED physician Normal ECG Interpretation: No acute ischemic changes ECG Interpretation: Sinus rhythm rate 63 LVH Time: 12:40 Interpreted by: ED physician Cardiac Echo Impression Most recent echocardiogram on 09/18/2016 Interpretation Summary Proximal septal thickening is noted. There is severe asymmetric left ventricular hypertrophy. The LVOT velocity is 2.8 m/s. The left ventricular outflow velocity with valsalva is 6.4 m/s. There is mild mitral regurgitation. There is systolic anterior motion of the chordal apparatus. There is trace tricuspid regurgitation. The right ventricular systolic pressure is estimated at least 33 mmHg assuming a right atrial pressure of 3 mm Hg. EF 70-75% Brief History Patient is 66 year old, female with a past medical history significant for hypertension, angina, and hypertrophic obstructive cardiomyopathy who presents to the ED complaining of feeling like she was going to "pas out" with symptoms of shortness of breath that was accompanied by numbness of the left side of her face and left arm while sitting on her couch. The patient was noted ot have altered mental status as well and most of her history was taken from her brother. She stated that her symptoms began at 8:30 AM with the progression of fatigue, dizziness, cold sensation and tingling/ numbness in her left arm, pain in left eye. She admits to similar episodes of presyncope accompanied by chest pain occurring throughout the last few months, for which she has not visited the ED. The most recent of which occurred 01/27 and 01/29, and were accompanied by chest pain. The patient is followed by stacker driver Dr. Porter and she takes metoprolol tartrate 100 mg bid and verapamil 180 mg daily. Patient admits to not being compliant with her medications. She states that she frequently forgets to take her heart medication at the prescribed time and takes it as soon as she remembers, sometimes overlapping with her next dose. She had a recent ECHO done on 09/18/16 which showed severe asymmetric left ventricular hypertrophy and increased LVOT velocity suggestive of obstruction. The patient's metoprolol was stopped upon admission and she was given calcium gluconate in the ED as her blood pressures were running in the 50's. The patient was admitted for possible accidental medication overdose. She gradually returned back to her base line mental status and was restarted on Verapamil 180mg daily. While in the hospital it was noted that the patient's heart rate started to increase to the 110's at rest and 130's with activity it was decided to restart the patient's metoprolol at 25mg BID and was titrated up to 50mg BID and it was at this level that the patient's heart rate remained stable in the 70's-80's. It was explained to the patient the importance of taking her medications regularly and at the same time. The patient has agreed to set an alarm on her phone in order to be more consistent with taking her medications. The patient was discharged home in stable condition. Her Verapamil will stay the same at 180mg daily but the metoprolol has been decreased to 50mg BID. Hospital Course Acute Symptomatic Bradycardia, present on admission, resolved -presented with symptoms of pre-syncope -likely secondary to polypharmacy and non-compliant to medication instructions. Patient states that she takes her meds whenever she remembers -Patient was on metoprolol tartrate 100 mg bid and Verapamil 180 mg -Presented with a heart rate of 30. She was given atropine x3, for a total of 2mg, calcium gluconate to reverse verapamil and glucagon to reverse metoprolol. -HR increased to 70s with the atropine -Initially Held home medications of metoprolol and verapamil overnight -Cardiology, Dr. Blackman was consulted and case discussed extensively with him today. We appreciate his input. -Resume home dose of verapamil -Metoprolol succinate was titrated up to 50 mg twice a day with goal heart rates in the 70s to 80s at discharge Hypertension, chronic, ongoing -Hold home medications -Initially controlled with hydralazine 25 mg q8 hrs. while holding verapamil and metoprolol -Hydralazine was stopped on 02/09/17 - Blood pressure remains stable on diltiazem and metoprolol at discharge -Monitor blood pressure Hypertrophic obstructive cardiomyopathy, present on admission, ongoing -Patient's most recent ECHO on 09/18/16 which showed severe asymmetric left ventricular hypertrophy and increased LVOT velocity suggestive of obstruction -Patient is being followed by Drug Abuse Resistance Education Officer Dr. Porter as an outpatient GERD -Continue home dose of ranitidine Exam Vital Signs (Last) Date Time Temp Pulse Resp B/P Pulse Ox O2 Delivery O2 Flow Rate FiO2 02/10/17 15:55 37.0 81 16 140/86 97 Room Air 02/08/17 12:26 2 Exam General: Patient is lying comfortably in bed, AAOX3, not in acute distress, cooperative and pleasant. Eyes: Pupils equal round reactive to light, extraocular motion intact, no scleral icterus, noninjected conjunctiva HEENT: head normocephalic and atraumatic, moist mucous membranes without central cyanosis Neck: neck supple, non-tender, no lymphadenopathy, trachea midline, no JVD CV: regular rate and rhythm, s1 and s2 heard, systolic murmur heard best on the right sternal border, radial pulses 2+ and equal bilaterally, no rubs or gallops , no edema Lungs: Clear to auscultation bilaterally, no wheezes, rales or rhonchi, no increased work of breathing Abdomen: NABS, soft, nontender, nondistended no organomegaly noted Skin: warm and dry Neuro: Nonfocal neurologic exam, able to move all extremities spontaneously Psych: Normal mood and affect : No Son catheter in place Test 02/08/17 10:15 02/08/17 10:47 02/08/17 10:50 02/09/17 02:25 Hold Urine Received (Received) Hold [place] Top Tube Received (Received) D-Dimer 0.63mg/L FEU (<0.50) Magnesium Level 2.1mg/dL (1.6-2.6) Total Creatine Kinase 55U/L (21-215) Creatine Kinase MB 1.2ng/mL (0.0-5.3) Creatine Kinase MB % % (0.0-5.0) Troponin T < 0.010ug/L (0.0-0.011) Pro-B-Type Natriuretic Peptide 571.1pg/mL (0-287) Thyroid Stimulating Hormone (TSH) 3.590uIU/mL (0.450-4.500) Free Thyroxine 0.99ng/dL (0.82-1.77) Neutrophils (%) (Auto) 49.3% (40-74) Lymphocytes (%) (Auto) 34.7% (14-46) Monocytes (%) (Auto) 10.6% (4-12) Eosinophils (%) (Auto) 4.6% (0-5) Basophils (%) (Auto) 0.6% (0-3) Test 02/10/17 02:20 White Blood Count 6.9th/mm3 (3.8-10.1) Red Blood Count 4.43mil/mm3 (3.90-5.20) Hemoglobin 13.6g/dL (12.0-15.6) Hematocrit 39.8% (35.0-46.0) Mean Corpuscular Volume 89.8fL (81-100) Mean Corpuscular Hemoglobin 30.7pg (27.0-35.0) Mean Corpuscular Hemoglobin Concent 34.2% (32.0-37.0) Red Cell Distribution Width 14.2% (12.3-15.4) Platelet Count 208bil/L (150-400) Sodium Level 139mEq/L (134-144) Potassium Level 4.6mEq/L (3.5-5.2) Chloride Level 102mEq/L (97-108) Carbon Dioxide Level 23mmol/L (18-29) Blood Urea Nitrogen 25mg/dL (8-27) Creatinine 0.70mg/dL (0.57-1.00) Estimat Glomerular Filtration Rate 121mL/min (>59) Glucose Level 130mg/dL (60-99) Calcium Level 8.7mg/dL (8.5-10.1) Total Bilirubin 0.4mg/dL (0.0-1.2) Aspartate Amino Transf (AST/SGOT) 19U/L (0-50) Alanine Aminotransferase (ALT/SGPT) 22U/L (0-32) Alkaline Phosphatase 108U/L (25-165) Total Protein 6.4g/dL (6.4-8.4) Albumin 3.6g/dL (3.4-5.0) Discharge Medications Discharge Medications Metoprolol Succinate ER (Metoprolol Succinate ER) 50 Mg Tab.er.24h 50 MG PO BID Prescribed by: MAZIN ACKERMAN DO Ranitidine (Ranitidine) 150 Mg Capsule 150 MG PO BID (Reported) Verapamil ER (Verapamil ER) 180 Mg Cap24h.pel 180 MG PO DAILY (Reported) diphenhydrAMINE HCl (Benadryl) 25 Mg Capsule 25 MG PO DAILY (Reported) Miscellaneous Medications Nitroglycerin SL (Nitroglycerin SL) 0.4 Mg Tab.subl 0.4 MG SL (Reported) Additional med instructions We have made a change to one of your previously prescribed medications that was likely causing your slow heart rate. Your Metoprolol has been decreased Please stop taking your old prescription. Please begin taking Metoprolol Succinate 50mg twice daily. The rest of your medications will remain the same. Followup Plan Disposition: Home Follow-up plan Please follow up with your PCP in 1 week to discuss your recent hospitalization and to discuss your medication changes. Please follow up with your stacker driver in 2 weeks to discuss your medication changes, as well as how you are feeling after making the changes to your dosages. Discharge Diet: Heart Healthy Discharge Activity: Limited until seen by PCP Patient Instructions Please check your heart rate twice a day once in the morning before taking your metoprolol and in the afternoon. If you heart rate is slower than 60 beats pre minute ever, or faster than 100 beats per minute while resting please call you PCP and discuss any further changes to your medications. Follow-up Provider: Lara Sneed MD Follow-up with PCP in: 1 week Provider: Antonio Porter MD Follow-up in: 2 weeks Time spent Greater than 35 minutes Attending Statement The patient was seen and examined together with Dr. Ackerman on 02/11/17 and I have added additional information to the note above. copies to: Lara Sneed MD; Antonio Porter MD, Nicholas K DO Feb 11, 2017 20:38 Sofiya Mon DO Feb 14, 2017 14:30
== END 2017-02-10 17:25 | disposition home or self-care (01) ==
LOC: SED 09:55 → PCC 12:46
PROVIDERS: ADMIT Neuromusculoskeletal Medicine & OMM; ATTEND Neuromusculoskeletal Medicine & OMM
DX: R00.1 Bradycardia, unspecified (principal); I10 Essential (primary) hypertension; I42.1 Obstructive hypertrophic cardiomyopathy; K21.9 Gastro-esophageal reflux disease without esophagitis; R55 Syncope and collapse; M19.90 Unspecified osteoarthritis, unspecified site; Z90.710 Acquired absence of both cervix and uterus; Z88.8 Allergy status to other drugs, medicaments and biological substances
CPT/HCPCS: 36415; 71010; 80053; 82550; 82553; 83735; 83880; 84439; 84443; 84484; 85025; 85027; 85378; 93005; 96361; 96372; 96374; 96375; 96376; 99291; 99292; G0378; J0461; J0610; J1610; J1644; J2405; J7030